=== PATIENT | female | born 1945 | race Caucasian/White ===

== ENCOUNTER → 2021-03-12 10:22 | Outpatient (CLI) | payer OTHER, SELFPAY ==
--- NOTE | ~2021-03-12 | DEXA_ITS ---
Bone Density Report Name: Danyelle Pool Age: 76 Sex: Female Ethnicity: White Date of : 1945 Indication: postmenopausal; screening for osteoporosis; height loss; hysterectomy; Referring Provider: SILVIA, DREA Caro Study: Bone densitometry was performed. Exam Date: March 12, 2021 Accession number: [id number] Bone Density: Region BMD T-score Z-score Classification AP Spine (L1-L4) 1.076 0.3 2.8 Normal Femoral Neck (Left) 0.784 -0.6 1.6 Normal Total Hip (Left) 0.895 -0.4 1.5 Normal Femoral Neck (Right) 0.806 -0.4 1.8 Normal Total Hip (Right) 0.861 -0.7 1.2 Normal Total Hip Mean 0.878 -0.6 1.4 Normal World Health Organization criteria for BMD impression classify patients as: Normal (T-score at or above -1.0), Osteopenia (T-score between -1.0 and -2.5), or Osteoporosis (T-score at or below -2.5). 10-year Fracture Risk: FRAX not reported because: All T-scores for Spine Total, Hip Total, Femoral Neck at or above -1.0 Previous Exams: Region Exam Age BMD T-score BMD Change BMD Change Date g/cm2 vs Baseline vs Previous AP Spine(L1-L4) 03/12/2021 76 1.076 0.3 0.038 -0.030 10/03/2015 70 1.106 0.5 0.069* 0.069* 12/04/2011 66 1.037 -0.1 Total Hip(Left) 03/12/2021 76 0.895 -0.4 0.000 -0.067 10/03/2015 70 0.962 0.2 0.067* 0.067* 12/04/2011 66 0.895 -0.4 Total Hip(Right) 03/12/2021 76 0.861 -0.7 -0.065 -0.044 10/03/2015 70 0.905 -0.3 -0.021 -0.021 12/04/2011 66 0.927 -0.1 *Denotes significance at 95% confidence level, LSC for AP Spine = 0.022 g/cm2, LSC for Total Hip = 0.027 g/cm2 Clinical Information Provided by Patient: Has used the following medications: Vitamin D Has the following medical conditions: Hysterectomy Patient maximum height was 68.5 Menopause Age: 34 No regular weight bearing exercise Drinks caffeinated beverages Onset of menses at age 12 Number of children 3 Impression: The patient has normal bone mass. No significant bone loss was observed. Discussion: BONE DENSITY IS ABOVE THE MINIMUM DESIRABLE LEVEL AT ALL SKELETAL SITES TESTED. This patient?s bone mineral density is above the minimum desirable level (T-score -1.0 or better) at all sites measured. The patient should follow a healthful lifestyle (good nutrition with adequate calcium and vitamin D, and appropriate weight-bearin
== END ==
PROVIDERS: PCP Internal Medicine; Visit Provider Internal Medicine
DX: Z78.0 Asymptomatic menopausal state (principal)
CPT/HCPCS: 77080

== ENCOUNTER 2023-02-04 12:52 | Outpatient (CLI) | payer OTHER, SELFPAY ==
--- NOTE | 2023-02-04 14:05 | ECG_ITS ---
Measurements Intervals [place] Rate: 56 P: 51 [place]: 220 QRS: -19 QRSD: 93 T: 29 QT: 354 QTc: 342 Interpretive Statements SINUS BRADYCARDIA WITH SINUS ARRHYTHMIA WITH FIRST DEGREE AV BLOCK POOR R WAVE PROGRESSION, ANTERIOR LEADS NONSPECIFIC T-WAVE ABNORMALITY- ANT/INF LEADS BASELINE ARTIFACT- I, III, AVR, AVL, V4-V6 BORDERLINE ECG NO PREVIOUS ECG AVAILABLE FOR COMPARISON Electronically Signed On 02-04-2023 14:41:44 CDT by Eduardo Davis D.O.
[2023-02-04 14:36] LABS: Basophils Absolute Auto 0.1 K/mm3 (0.0-0.1); Eosinophils Absolute Auto 0.3 K/mm3 (0-0.3); Eosinophils Percent Auto 4.1 % (0-4.4); Hematocrit 36.7 % (37.0-47.0); Hemoglobin 12.5 g/dL (12.0-15.0); Immature Granulocyte Absolute 0.03 K/mm3 (0.00-0.031); Immature Granulocyte Percent A 0.5 % (0-0.5); Lymphocytes Percent Auto 17.9 % (18.3-44.2); Mean Corpuscular HGB Conc 34.1 g/dl (32-36); Mean Corpuscular Hemoglobin 29.2 pg (26-34); Mean Corpuscular Volume 85.7 fl (80-100); Mean Platelet Volume 8.9 fl (7.4-10.4); Monocytes Absolute Auto 0.5 K/mm3 (0.1-0.6); Monocytes Percent Auto 7.3 % (2.6-8.5); Neutrophils Absolute Auto 4.3 K/mm3 (1.3-6.7); Neutrophils Percent Auto 69.2 % (45.5-73.1); Platelet Count Result 200 k/mm3 (150-375); Red Blood Count 4.28 M/mm3 (4.2-5.4); Red Cell Distribution Width 12.4 % (11.5-14.5); White Blood Count 6.2 K/mm3 (4.5-10.0)
[2023-02-04 14:54] LABS: INR 1.3
[2023-02-04 14:55] LABS: Partial Thromboplastin Time 31.2 SECONDS (22.3-36.8)
[2023-02-04 15:01] LABS: Alanine Aminotransferase 21 U/L (6-35); Albumin Level 4.4 g/dL (3.5-5.1); Alkaline Phosphatase 55 U/L (38-126); Anion Gap 7 mmol/L (8-16); Aspartate Amino Transferase 24 U/L (14-36); Bilirubin,Total 0.7 mg/dL (0.2-1.3); Blood Urea Nitrogen 19 mg/dL (7-17); Calcium 9.2 mg/dL (8.4-10.2); Carbon Dioxide 31 mmol/L (22-30); Chloride 99 mmol/L (98-107); Estimated Glomerular Filt Rate 40; Glucose 140 mg/dL (65-110); Potassium 3.6 mmol/L (3.4-5.0); Sodium 137 mmol/L (137-145)
== END 2023-02-04 12:53 | disposition home or self-care (01) ==
LOC: ANHSURGERY 12:59
PROVIDERS: PCP Internal Medicine; Visit Provider Urology
DX: N81.9 Female genital prolapse, unspecified (principal); I10 Essential (primary) hypertension; Z01.818 Encounter for other preprocedural examination
CPT/HCPCS: 36415; 80053; 85025; 85610; 85730; 86850; 86900; 86901; 86920; 93005

== ENCOUNTER 2023-02-16 00:30 | Day surgery (SDC) | payer OTHER, SELFPAY ==
[2023-02-04 13:34] VITALS: BP 135/66; PULSE 56; RESP 16; TEMP 36.8; O2SAT 100; BMI 27.6
--- NOTE | 2023-02-04 13:50 | PC.NURSE ---
Report to the Outpatient Waiting Room, entrance under the green pavilion located off [facility], at time __9:00AM on date __02/16/23 . Planned Procedure Time: __11:00AM . Time changes happen often and if your time is changed the preop area will call you the afternoon before. - You and your visitor will be asked to self-screen and do not enter if you have any COVID symptoms. - Only one visitor is requested with a max of two and NO children visitors are allowed at this time. - The patient visitor may be requested to leave or wait in car when not with patient due to distancing restrictions. - A mask is optional within the hospital at this time. Patients may have clear liquids (water, carbonated beverages, clear teas, apple juice) until 3 hours prior to surgery with a maximum of 20 ounces. - No food from midnight until time of surgery Take the following medications with a SIP of water the morning of surgery: ___ALPRAZOLAM NEEDED, MULTAQ, METOPROLOL DO NOT STOP ANY OF YOUR OTHER PRESCRIPTION MEDICATIONS PRIOR TO SURGERY ?EXCEPT THE FOLLOWING Medications to discontinue per physician ___HOLD XERALTO PER DR ESPINAL, HOLD ALL VITAMINS/SUPPLEMENTS 7 DAYS PRE-OP PER DR ESPINAL(PER PATIENT)- LAST DOSE 02/18/23 Please no make-up, nail chinese, hairspray, perfume, deodorant, or body powder the day of surgery. No jewelry (including any body piercings) or valuables the day of surgery, leave them at home. Please take a shower or bath the night before, or the morning of, surgery with an antibacterial soap. Wear comfortable, loose fitting clothing. Children are encouraged to wear pajamas. - Jewelry must be removed prior to entering the operating room. Rings and piercings that are not removed may be cut off. - The hospital will not accept responsibility for valuables. - Please leave all valuables, including medications, at home the day of surgery. If you are going home after surgery, a licensed otr flatbed driver must drive you home. - NO public transportation without another adult if you receive anesthesia. - We recommend that an adult stay with you for 24 hours following discharge. - We also recommend that you do not drive, make important decision, drink alcoholic beverages, or take any drugs that were not prescribed by your health care provider for at least 24 hours after your discharge time. Follow any additional instructions given to you from your surgeon. If you or anyone in your household have experienced Covid symptoms in the past week, please notify your surgeon or the nurse liaison at the phone number below for possible testing. Telephone instructions given to __PATIENT and asked if any additional questions and then verbalized understanding. Patient advised to call surgeon office or pre surgery nurse liaison [phone] if any additional questions.
--- NOTE | 2023-02-14 13:20 | PM.IMHP ---
H&P: HPI History of Present Illness Date/Time: 02/14/23 13:20 Chief Complaint: POP/YESENIA Narrative: 78 yo with post hysterectomy POP. Eoriosns with pessary. YESENIA resolved as prolpase worsened. Desires a surgical intervention Review of Systems Review of Systems: All systems reviewed & are unremarkable except as noted in HPI and below PMFSH Past Medical History Medical History Atrial fibrillation Chronic GERD CVA (cerebral vascular accident) mini stroke a long time ago Hyperlipidemia Hypertension MVP (mitral valve prolapse) Psoriasis Sarcoidosis of lung in remission Seasonal allergies Vaginal delivery x3 Surgical History Surgical History History of bilateral salpingo-oophorectomy 1978? History of breast surgery , clogged duct History of cholecystectomy History of hand surgery left trigger finger History of hysterectomy 1978? Family History Family History Mother Heart disease Social History Social History Smoking status: Never smoker Alcohol intake: never Substance use: never Living arrangements: with family Additional living arrangements comments: DAUGHTER & GRANDDAUGHTER Spiritual care concerns: No Agree to blood products: Yes Meds Home Medications and Allergies Home Medications Medication Instructions Recorded Confirmed Type alprazolam 0.25 mg tablet 0.125 mg PO TID PRN Anxiety 01/29/22 02/04/23 History atorvastatin 10 mg tablet 10 mg PO DAILY 01/29/22 02/04/23 History benazepril 20 1 tablet PO QAM 01/29/22 02/04/23 History mg-hydrochlorothiazide 12.5 mg tablet cholecalciferol (vitamin D3) 50 50 mcg PO DAILY 01/29/22 02/04/23 History mcg (2,000 unit) capsule coenzyme Q10 200 mg capsule 200 mg PO DAILY 01/29/22 02/04/23 History cranberry fruit concentrate 250 mg 250 mg PO BID 01/29/22 02/04/23 History chewable tablet (Azo Cranberry) dronedarone 400 mg tablet (Multaq) 400 mg PO Q12H 01/29/22 02/04/23 History fexofenadine 180 mg tablet 180 mg PO DAILY PRN Sinus Symptoms 01/29/22 02/04/23 History (Deisy Allergy) furosemide 20 mg tablet 20 mg PO QAM 01/29/22 02/04/23 History glucosamine sulf dipotassium Cl 1 cap PO DAILY 01/29/22 02/04/23 History 250 mg-chondroitin sulf 200 mg capsule magnesium 250 mg tablet 250 mg PO BID 01/29/22 02/04/23 History metoprolol succinate 100 mg 100 mg PO QAM 01/29/22 02/04/23 History tablet,extended release 24 hr metoprolol succinate 25 mg 12.5 mg PO QPM 01/29/22 02/04/23 History tablet,extended release 24 hr montelukast 10 mg tablet 10 mg PO HS 01/29/22 02/04/23 History omega-3 fatty acids-fish oil 360 1 cap PO BID 01/29/22 02/04/23 History mg-1,200 mg capsule (Fish Oil) potassium chloride 10 mEq 20 meq PO BID 01/29/22 02/04/23 History capsule,extended release risankizumab-rzaa 150 mg/mL 150 mg subcut Q3-4M 01/29/22 02/04/23 History subcutaneous pen injector (Skyrizi) rivaroxaban 10 mg tablet (Xarelto) 10 mg PO DAILY 01/29/22 02/04/23 History Bifidobacterium infantis 4 mg 4 mg PO DAILY 02/04/23 02/04/23 History capsule (Align) psyllium husk 0.4 gram capsule 0.4 g PO DAILY 02/04/23 02/04/23 History Allergies Allergy/AdvReac Type Severity Reaction Status Date / Time No Known Allergies Allergy Verified 02/04/23 13:14 Vital Signs Thin NAD normal breathing A+O x3 + urethral mobility anterior wall +4 [place] 0 Assessment and Plan Assessment and plan (1) Prolapse of vaginal vault after hysterectomy: Code(s): N99.3 - Prolapse of vaginal vault after hysterectomy Status: Acute (2) YESENIA (stress urinary incontinence, female): Code(s): N39.3 - Stress incontinence (female) (male) Status: Acute Plan robotic colpopexy and urethral sling.
[2023-02-16] VITALS (11 sets, daily range): BP systolic 113–150; BP diastolic 51–77; PULSE 57–80; RESP 13–19; TEMP 35.9–36.8; O2SAT 96–100
--- NOTE | 2023-02-16 07:13 | WPDHPUPDATE1 ---
History and Physical Update Update Date/Time: 02/16/23 07:13 History and Physical has been reviewed, including an updated exam of the patient. There are NO changes in the patient's condition. Risks, benefits, and alternatives have been discussed and questions answered. Patient agrees to proceed with procedure.
--- NOTE | 2023-02-16 07:48 | WPDANESEPPF ---
Anes - Initial Pre Proc Eval Procedure: Operation Date: 02/16/23 11:00 Proposed Procedures p Robotic Sacrocolpopexy - Miki Brooks MD s Urethral Sling - Miki Brooks MD Date/Time: 02/16/23 07:48 Surgeon: Miki Brooks MD Pre Op Diagnosis: prolapse of vaginal vault after hyst,cystocele Patient Data Age: 78 Gender: F Height: 1.69 m Weight: 79 kg Last Vital Signs Temp 36.8 C 02/04/23 13:34 Pulse 56 L 02/04/23 13:34 Resp 16 02/04/23 13:34 BP 135/66 02/04/23 13:34 Pulse Ox 100 02/04/23 13:34 O2 Del Method Room Air 02/04/23 13:34 Allergies Allergy/AdvReac Type Severity Reaction Status Date / Time No Known Allergies Allergy Verified 02/16/23 09:19 Home Medications Medication Instructions Recorded Confirmed Type alprazolam 0.25 mg tablet 0.125 mg PO TID PRN Anxiety 01/29/22 02/16/23 History atorvastatin 10 mg tablet 10 mg PO DAILY 01/29/22 02/16/23 History benazepril 20 1 tablet PO QAM 01/29/22 02/16/23 History mg-hydrochlorothiazide 12.5 mg tablet cholecalciferol (vitamin D3) 50 50 mcg PO DAILY 01/29/22 02/16/23 History mcg (2,000 unit) capsule coenzyme Q10 200 mg capsule 200 mg PO DAILY 01/29/22 02/16/23 History cranberry fruit concentrate 250 mg 250 mg PO BID 01/29/22 02/16/23 History chewable tablet (Azo Cranberry) dronedarone 400 mg tablet (Multaq) 400 mg PO Q12H 01/29/22 02/16/23 History fexofenadine 180 mg tablet 180 mg PO DAILY PRN Sinus Symptoms 01/29/22 02/16/23 History (Deisy Allergy) furosemide 20 mg tablet 20 mg PO QAM 01/29/22 02/16/23 History glucosamine sulf dipotassium Cl 1 cap PO DAILY 01/29/22 02/16/23 History 250 mg-chondroitin sulf 200 mg capsule magnesium 250 mg tablet 250 mg PO BID 01/29/22 02/16/23 History metoprolol succinate 100 mg 100 mg PO QAM 01/29/22 02/16/23 History tablet,extended release 24 hr metoprolol succinate 25 mg 12.5 mg PO QPM 01/29/22 02/16/23 History tablet,extended release 24 hr montelukast 10 mg tablet 10 mg PO HS 01/29/22 02/16/23 History omega-3 fatty acids-fish oil 360 1 cap PO BID 01/29/22 02/16/23 History mg-1,200 mg capsule (Fish Oil) potassium chloride 10 mEq 20 meq PO BID 01/29/22 02/16/23 History capsule,extended release risankizumab-rzaa 150 mg/mL 150 mg subcut Q3-4M 01/29/22 02/04/23 History subcutaneous pen injector (Skyrizi) rivaroxaban 10 mg tablet (Xarelto) 10 mg PO DAILY 01/29/22 02/16/23 History Bifidobacterium infantis 4 mg 4 mg PO DAILY 02/04/23 02/16/23 History capsule (Align) psyllium husk 0.4 gram capsule 0.4 g PO DAILY 02/04/23 02/16/23 History ECG: Date of Service: 02/04/23 Procedure(s): CA 12 lead EKG Accession Number(s): [id number] cc: ~ ? Measurements Intervals? [place]? Rate: ? 56 ? P:? 51 MD: ? 220? QRS:? -19 QRSD: ? 93 ? T:? 29 QT: ? 354? QTc:? 342? Interpretive Statements SINUS BRADYCARDIA WITH SINUS ARRHYTHMIA WITH FIRST DEGREE AV BLOCK POOR R WAVE PROGRESSION, ANTERIOR LEADS NONSPECIFIC T-WAVE ABNORMALITY- ANT/INF LEADS BASELINE ARTIFACT- I, III, AVR, AVL, V4-V6 BORDERLINE ECG NO PREVIOUS ECG AVAILABLE FOR COMPARISON Electronically Signed On 02-04-2023 14:41:44 CDT by Eduardo Davis D.O. Patient hx anesthesia problems: none Family hx anesthesia problems: none Results Review: All pre-operative results and documents have been reviewed as part of the pre-operative evaluation. [facility] Past Medical History Medical History Atrial fibrillation Chronic GERD CVA (cerebral vascular accident) mini stroke a long time ago Hyperlipidemia Hypertension MVP (mitral valve prolapse) Psoriasis Sarcoidosis of lung
[2023-02-16] MEDS: LACTATED RINGERS 1,000 ML 30 ML IV CONT ×2 (09:35→13:36)
[2023-02-16 09:51] LABS: Prothrombin Time 13.1 Seconds (11.1-14.7)
[2023-02-16 09:52] LABS: Partial Thromboplastin Time 25.1 SECONDS (22.3-36.8)
[2023-02-16] MEDS: ceFAZolin 2 GM/D5W 50 ML 2 GM/50 ML BAG IVPB (10:32)
[2023-02-16] MEDS: BUPIVACAINE/EPINEPHRINE 0.25% 50 ML VIAL 10 ML INFILTRATE (13:07)
[2023-02-16] MEDS: fentaNYL CITRATE INJ (*CRX) 100 MCG/2 ML VIAL 25 MCG IV PUSH ×4 (13:40→15:12)
--- NOTE | 2023-02-16 13:56 | W.PM.PROC2 ---
Procedure Note - Detailed Date of Procedure 02/16/23 Pre-op Diagnosis prolapse of vaginal vault after hyst,cystocele, stress incontinence Post-op Diagnosis Same Procedure Performed Robotic assisted laparoscopic sacral colpopexy Urethral sling Cystoscopy Surgeon Miki Brooks MD Anesthesia General Indications This is a woman with post hysterectomy vaginal vault prolapse as well as stress urinary incontinence. She desires surgical correction. She understands risks of bleeding, infection, diskitis, damage to surrounding organs, damage to the bowel or urinary tract, recurrence of prolapse, dyspareunia, vaginal mesh exposure, urinary tract mesh exposure, obstructive voiding requiring secondary procedure, hip and leg pain, and other perioperative intraoperative and postoperative complications. She is to proceed Findings See below Description of Procedure She was correctly identified. Informed consent obtained. She is brought to the operating room. She was given general anesthesia. She was placed in the lithotomy position. She was given appropriate perioperative antibiotics. She was prepped and draped in a sterile fashion. A time-out performed. I anesthetized the skin 3 fingerbreadths cephalad to the umbilicus. I incised the skin. I located the fascia. I grasped the fascia with Nathan clamps. I incised the fascia sharply and a Rodriguez type technique. I placed Vicryl sutures for later fascial closure. I placed a midline trocar. Under direct vision placed 2 additional trocars in the right upper quadrant and 2 additional trocars in the left upper quadrant. She was placed in steep Trendelenburg. The robot was docked. I sat at the console. adhesions were noted of small and large bowel into the pelvis. These were all taken down sharply without the use of cautery. This allowed for the bowel to get out of the pelvis and facilitate the surgery. Great care was taken to not injure the bowel. Of note she had significant redundant sigmoid colon. With the Sizer in the vagina and created a plane on the anterior and posterior vaginal wall for several cm taking great care not to injure the vagina, bladder, or rectum. I introduced the mesh into the vagina. I sewed the anterior leaflet of mesh on the anterior vaginal wall and posterior leaf of the mesh on the posterior vaginal wall with several sutures of 2 0 [place]-Venancio taking great care not to go through and through. I then opened up the peritoneum over the sacral promontory. I carried this incision into the cul-de-sac. I freed up the edges for later retroperitonealization of the mesh. I located the anterior longitudinal ligament of the sacrum. I cleaned off any fatty tissues. I then tensioned my mesh appropriately. I did a vaginal exam to ensure prolapse reduction without undue tension. I then sewed the proximal leaflet of mesh onto the ligament with several sutures of 2 0 [place]Venancio. I then used a 2 0 Monocryl to meticulously retroperitonealized all mesh. I allowed the colon to go back into its normal anatomic location. There is no sign of impingement. He had an was then exited. Fascial sutures were closed. In additional suture was required to quit completely close the fascia. The wounds were all irrigated and closed with 4 O Monocryl and skin glue. She was then repositioned and prepped for urethral sling. I marked out the inner thigh incisions. I anesthetized the skin and made those incisions. I then anesthetized the anterior vaginal wall over the mid urethra. I made a 1 cm incision. I dissected out laterally taking great care not to injure the urethra vaginal wall. I passed the helical trocars. I did this 1st on the left than on the right from the thigh incision towards the vaginal incision. Sling was connected to the trocars and brought out through the thigh incision. I tensioned the sling appropriately. I cut and removed the plastic sleeves. I then performed cystoscopy. The bladder
--- NOTE | 2023-02-16 15:35 | PC.NURSE ---
Patient transferred to post room #288 via ( stretcher ). Support person present. Oriented to unit, room, information board, rooming in, admission packet and security measures. Patient verbalizes understanding.
[2023-02-16] MEDS: KCL 20 MEQ/D5/0.45% SOD CHL 1,000 ML 100 ML IV CONT (15:52)
[2023-02-16] MEDS: KETOROLAC 15 MG/ML VIAL (*BKC) IV PUSH (17:03)
[2023-02-16] MEDS: ceFAZolin 1 GM/NS 50 ML 1 GM/50 ML BAG IVPB (17:04)
[2023-02-16] MEDS: MONTELUKAST SODIUM 10 MG TABLET PO (20:20)
[2023-02-17 01:00] VITALS: BP 128/58; PULSE 61; RESP 16; TEMP 36.8; O2SAT 97
[2023-02-17] MEDS: ceFAZolin 1 GM/NS 50 ML 1 GM/50 ML BAG IVPB ×2 (01:00→09:15)
[2023-02-17 05:20] VITALS: BP 130/60; PULSE 69; RESP 16; TEMP 36.6; O2SAT 98
[2023-02-17] MEDS: ALPRAZolam (*CRX) 0.125 MG TABLET PO (06:24)
[2023-02-17 08:00] VITALS: BP 120/54; PULSE 59; RESP 16; TEMP 36.8; O2SAT 97
[2023-02-17] MEDS: DOCUSATE SODIUM 100 MG CAPSULE PO (09:13)
[2023-02-17 09:14] VITALS: PULSE 59
[2023-02-17] MEDS: hydroCHLOROthiazide 12.5 MG CAPSULE PO (09:14)
[2023-02-17] MEDS: FUROSEMIDE 20 MG TABLET PO (09:14)
[2023-02-17] MEDS: lisinopriL 20 MG TABLET PO (09:14)
[2023-02-17] MEDS: METOPROLOL SUCCINATE EXT REL 100 MG TABCR PO (09:14)
[2023-02-17] MEDS: ENOXAPARIN 30 MG/0.3 ML SYRINGE SUB-Q (09:14)
--- NOTE | 2023-02-17 09:42 | WPDANESPN ---
Anes - Prog Note Post-Op Date/Time: 02/17/23 09:42 Cardiovascular status: normal Respiratory status: normal Airway patency: baseline Mental status: baseline Post-Op hydration status: normal Vital Signs: Last Vital Signs Temp 98.2 F 02/17/23 08:00 Pulse 59 L 02/17/23 09:14 Resp 16 02/17/23 08:00 BP 120/54 L 02/17/23 08:00 Pulse Ox 97 02/17/23 08:00 O2 Del Method Room Air 02/17/23 07:15 O2 Flow Rate 8 02/16/23 14:05 Pain Score (VAS): 0 I/O: Intake & Output 02/16/23 02/17/23 02/17/23 23:59 07:59 15:59 Intake Total 750 1500 Output Total 800 500 Balance -50 1000 02/16/23 09:28 PT 13.1 INR 1.0 APTT 25.1 Post-procedural complaints: none Patient Feedback: Patient satisfied with anesthetic care.pt c/o feeling unsteady when up. reinforced to pt need to get up with assistance until she feels steady with independent ambulation
--- NOTE | 2023-02-17 12:55 | WPDUROPN2 ---
Progress Note: A&P Assessment and Plan (1) Prolapse of vaginal vault after hysterectomy: Code(s): N99.3 - Prolapse of vaginal vault after hysterectomy Status: Acute Assessment and Plan: Ok to discharge home. (2) YESENIA (stress urinary incontinence, female): Code(s): N39.3 - Stress incontinence (female) (male) Status: Acute Subjective Subjective Date/Time Seen: 02/17/23 12:55 Robotic assisted laparoscopic sacral colpopexy Urethral sling Cystoscopy The patient is doing very well today. She is urinating on her own without her cheek. Post Op day: 1 Review of Systems Respiratory: Respiratory: Reports no additional respiratory complaints Gastrointestinal: Gastrointestinal: Denies abdominal pain Genitourinary: Genitourinary: Denies dysuria, Denies pelvic pain, Denies flank pain, Denies urinary incontinence and Denies urinary urgency Exam Const: General: comfortable Resp: Effort & Inspection: normal respiratory effort Cardio: Rate: regular rate GI: Inspection: incision (all well approximated, no tenderness, redness or edema) GI Palp: Yes Soft to palpation and No Tenderness to palpation present (GI) : General: Yes no CVA tenderness Back/Spine/Pelvis: Back: no CVA tenderness Objective Data Vital Signs Vital Signs: Vital Signs - 24 hr 02/16/23 13:36 02/16/23 13:50 02/16/23 14:05 Temperature 97.3 F L 97.4 F L 97.5 F L Pulse Rate 57 L 57 L 58 L Respiratory Rate 14 17 14 Blood Pressure 136/51 L 113/60 124/77 Pulse Oximetry 100 100 100 Oxygen Delivery Simple Face Mask Simple Face Mask Simple Face Mask Oxygen Flow Rate 8 8 8 02/16/23 14:20 02/16/23 14:35 02/16/23 14:50 Temperature 97.3 F L 97.0 F L 97.3 F L Pulse Rate 57 L 58 L 65 Respiratory Rate 15 13 19 Blood Pressure 144/60 H 141/56 H 132/60 Pulse Oximetry 98 98 98 Oxygen Delivery Room Air Room Air Room Air Oxygen Flow Rate 02/16/23 15:05 02/16/23 15:20 02/16/23 16:02 Temperature 98.0 F 96.7 F L Pulse Rate 58 L 59 L 80 Respiratory Rate 18 14 16 Blood Pressure 139/53 L 136/73 Pulse Oximetry 97 96 97 Oxygen Delivery Room Air Room Air Oxygen Flow Rate 02/16/23 16:02 02/16/23 20:20 02/16/23 20:20 Temperature 97.8 F Pulse Rate 65 Respiratory Rate 18 Blood Pressure 132/56 L Pulse Oximetry 98 Oxygen Delivery Room Air Room Air Oxygen Flow Rate 02/17/23 01:00 02/17/23 01:00 02/17/23 05:20 Temperature 98.2 F 98 F Pulse Rate 61 69 Respiratory Rate 16 16 Blood Pressure 128/58 L 130/60 Pulse Oximetry 97 98 Oxygen Delivery Room Air Oxygen Flow Rate 02/17/23 05:20 02/17/23 07:15 02/17/23 08:00 Temperature 98.2 F Pulse Rate 59 L Respiratory Rate 16 Blood Pressure 120/54 L Pulse Oximetry 97 Oxygen Delivery Room Air Room Air Oxygen Flow Rate 02/17/23 09:14 Temperature Pulse Rate 59 L Respiratory Rate Blood Pressure Pulse Oximetry Oxygen Delivery Oxygen Flow Rate Intake/Output Intake/Output: Intake & Output 02/14/23 02/15/23 02/16/23 02/17/23 23:59 23:59 23:59 23:59 Intake Total 1200 1550 Output Total 920 1050 Balance 280 500
== END 2023-02-17 11:59 | disposition home or self-care (01) ==
LOC: ANHSURGERY 14:47 → ANHOB2 15:29
PROVIDERS: Anesthesiology; PCP Internal Medicine; Visit Provider Urology
PROC: (CPT 57425; principal; 2023-02-16 11:00)
PROC: (CPT 57425; 2023-02-16 11:00)
DX: N99.3 Prolapse of vaginal vault after hysterectomy (principal); N39.3 Stress incontinence (female) (male); I48.91 Unspecified atrial fibrillation; I10 Essential (primary) hypertension; E78.5 Hyperlipidemia, unspecified; I34.1 Nonrheumatic mitral (valve) prolapse; K21.9 Gastro-esophageal reflux disease without esophagitis; L40.9 Psoriasis, unspecified; Z86.73 Personal history of transient ischemic attack (TIA), and cerebral infarction without residual deficits; Z79.01 Long term (current) use of anticoagulants
CPT/HCPCS: 57425; 57288; S2900; 36415; 80053; 85025; 85610; 85730; 86850; 86900; 86901; 86920; 93005; 99199; A9270; C1771; C1781; C9290; J0690; J1100; J1650; J1885; J2250; J2405; J2704; J3010; J3480; J7030; J7120

== ENCOUNTER 2023-05-28 04:05 | Emergency (ER) | payer OTHER, SELFPAY ==
[2023-05-28 04:08] VITALS: BP 172/69; PULSE 64; RESP 20; TEMP 36.7; O2SAT 99
--- NOTE | 2023-05-28 04:12 | ECG_ITS ---
Measurements Intervals [place] Rate: 58 P: 53 [place]: 212 QRS: -29 QRSD: 111 T: 45 QT: 451 QTc: 443 Interpretive Statements SINUS BRADYCARDIA WITH FIRST DEGREE AV BLOCK INTRAVENTRICULAR CONDUCTION DELAY DELAYED PRECORDIAL R/S TRANSITION BASELINE WANDER- I, II, III, AVR, AVF, V3, V6 BORDERLINE ECG COMPARED TO ECG 02/04/2023 13:19:57 INTRAVENTRICULAR CONDUCTION DELAY NOW PRESENT Electronically Signed On 05-28-2023 6:49:35 CDT by Eduardo Davis D.O.
[2023-05-28 04:13] VITALS: PULSE 60
[2023-05-28 04:14] VITALS: BP 170/82; PULSE 63; RESP 12; TEMP 36.6; O2SAT 99
[2023-05-28 04:26] LABS: Basophils Absolute Auto 0.1 K/mm3 (0.0-0.1); Basophils Percent Auto 0.8 % (0.2-1.2); Eosinophils Absolute Auto 0.4 K/mm3 (0-0.3); Eosinophils Percent Auto 6.7 % (0-4.4); Hematocrit 38.9 % (37.0-47.0); Hemoglobin 13.4 g/dL (12.0-15.0); Immature Granulocyte Absolute 0.01 K/mm3 (0.00-0.031); Immature Granulocyte Percent A 0.2 % (0-0.5); Lymphocytes Absolute Auto 2.59 K/mm3 (0.9-3.2); Lymphocytes Percent Auto 42.5 % (18.3-44.2); Mean Corpuscular HGB Conc 34.4 g/dl (32-36); Mean Corpuscular Hemoglobin 29.5 pg (26-34); Mean Corpuscular Volume 85.7 fl (80-100); Mean Platelet Volume 8.8 fl (7.4-10.4); Monocytes Absolute Auto 0.5 K/mm3 (0.1-0.6); Monocytes Percent Auto 8.2 % (2.6-8.5); Neutrophils Absolute Auto 2.5 K/mm3 (1.3-6.7); Neutrophils Percent Auto 41.6 % (45.5-73.1); Platelet Count Result 209 k/mm3 (150-375); Red Blood Count 4.54 M/mm3 (4.2-5.4); Red Cell Distribution Width 12.4 % (11.5-14.5); White Blood Count 6.1 K/mm3 (4.5-10.0)
--- NOTE | 2023-05-28 04:27 | ED.GENADULT ---
HPI - General Adult General Chief complaint: Arrhythmia/Palpitations Stated complaint: palpations History of Present Illness HPI narrative: This is a 78-year-old female history of paroxysmal AFib and anxiety. patient states that around 930pm she started to have some palpitations. This is how she feels when she goes into AFib. She took 1 of her Xanax and then was able to sleep until 330am. When she awoke she noticed that she was having palpitations again and took another 1/2 of her Xanax dose. She then started checking her heart rate on her phones other was as high as 103. She became anxious and came to the emergency department for evaluation. She did she have chest pain difficulty breathing nausea vomiting diaphoresis or association with exertion. At this time she actually states that she is asymptomatic and that both her palpitations and her anxiety have improved. Related Data Home Medications Medication Instructions Recorded Confirmed alprazolam 0.25 mg tablet 0.125 mg PO TID PRN Anxiety 01/29/22 02/16/23 atorvastatin 10 mg tablet 10 mg PO DAILY 01/29/22 02/16/23 benazepril 20 1 tablet PO QAM 01/29/22 02/16/23 mg-hydrochlorothiazide 12.5 mg tablet cholecalciferol (vitamin D3) 50 50 mcg PO DAILY 01/29/22 02/16/23 mcg (2,000 unit) capsule coenzyme Q10 200 mg capsule 200 mg PO DAILY 01/29/22 02/16/23 cranberry fruit concentrate 250 mg 250 mg PO BID 01/29/22 02/16/23 chewable tablet (Azo Cranberry) dronedarone 400 mg tablet (Multaq) 400 mg PO Q12H 01/29/22 02/16/23 fexofenadine 180 mg tablet 180 mg PO DAILY PRN Sinus Symptoms 01/29/22 02/16/23 (Deisy Allergy) furosemide 20 mg tablet 20 mg PO QAM 01/29/22 02/16/23 glucosamine sulf dipotassium Cl 1 cap PO DAILY 01/29/22 02/16/23 250 mg-chondroitin sulf 200 mg capsule magnesium 250 mg tablet 250 mg PO BID 01/29/22 02/16/23 metoprolol succinate 100 mg 100 mg PO QAM 01/29/22 02/16/23 tablet,extended release 24 hr metoprolol succinate 25 mg 12.5 mg PO QPM 01/29/22 02/16/23 tablet,extended release 24 hr montelukast 10 mg tablet 10 mg PO HS 01/29/22 02/16/23 omega-3 fatty acids-fish oil 360 1 cap PO BID 01/29/22 02/16/23 mg-1,200 mg capsule (Fish Oil) potassium chloride 10 mEq 20 meq PO BID 01/29/22 02/16/23 capsule,extended release risankizumab-rzaa 150 mg/mL 150 mg subcut Q3-4M 01/29/22 02/04/23 subcutaneous pen injector (Skyrizi) rivaroxaban 10 mg tablet (Xarelto) 10 mg PO DAILY 01/29/22 02/16/23 Bifidobacterium infantis 4 mg 4 mg PO DAILY 02/04/23 02/16/23 capsule (Align) psyllium husk 0.4 gram capsule 0.4 g PO DAILY 02/04/23 02/16/23 Allergies Allergy/AdvReac Type Severity Reaction Status Date / Time No Known Allergies Allergy Verified 02/16/23 09:19 [facility] Past Medical History Medical History Anxiety Atrial fibrillation Chronic GERD CVA (cerebral vascular accident) mini stroke a long time ago Hyperlipidemia Hypertension MVP (mitral valve prolapse) Psoriasis Sarcoidosis of lung in remission Seasonal allergies Vaginal delivery x3 Surgical History Surgical History History of bilateral salpingo-oophorectomy 1978? History of breast surgery , clogged duct History of cholecystectomy History of hand surgery left trigger finger History of hysterectomy 1978? Family History Family History Mother Heart disease Social History Social History Smoking status: Never smoker Alcohol intake: never Substance use: never Living arrangements: with family Additional living arrangements comments: DAUGHTER & GRANDDAUGHTER Spiritual care concerns: No Agree to blood products: Yes Exam Narrative: APPEARANCE: No apparent distress. Patient is pleasant and polite, well-appearing Head:
[2023-05-28 04:28] VITALS: BP 171/68; PULSE 52; RESP 15; O2SAT 97
[2023-05-28 05:13] VITALS: BP 149/65; PULSE 51; RESP 13; TEMP 36.7; O2SAT 96
== END 2023-05-28 05:14 | disposition home or self-care (01) ==
PROVIDERS: Emergency Provider Emergency Medicine; PCP Internal Medicine
DX: F41.9 Anxiety disorder, unspecified (principal); R00.2 Palpitations; I48.0 Paroxysmal atrial fibrillation; E78.5 Hyperlipidemia, unspecified; I10 Essential (primary) hypertension; Z79.01 Long term (current) use of anticoagulants; Z86.73 Personal history of transient ischemic attack (TIA), and cerebral infarction without residual deficits
CPT/HCPCS: 36415; 85025; 93005; 99284

== ENCOUNTER 2025-10-12 13:19 | Outpatient (CLI) | payer OTHER, SELFPAY ==
--- NOTE | ~2025-10-12 | US_ITS ---
EXAMINATION: US renal BI, 10/12/2025 13:25 [facility] HISTORY: I12.9 - Hypertensive chronic kidney disease with stage 1 ... Comparison: None Technique: Garcia-scale and color Doppler images were obtained. Findings: KIDNEYS: The renal cortices are slightly distended echogenic, no solid masses, cysts or calculi, no hydronephrosis. Right Kidney: Right kidney is 10 x 3.7 x 4.8 cm. Left Kidney: Left kidney 11.3 x 4.3 x 5.2 cm. Bladder: The bladder is unremarkable. . Impression: Mild medical renal disease. No obstruction Reviewed, dictated and finalized at location [facility] Impression: Mild medical renal disease. No obstruction
== END 2025-10-12 13:20 | disposition home or self-care (01) ==
LOC: MICIMG 13:20
PROVIDERS: PCP Internal Medicine; Visit Provider Internal Medicine Nephrology
DX: I12.9 Hypertensive chronic kidney disease with stage 1 through stage 4 chronic kidney disease, or unspecified chronic kidney disease (principal); N18.32 Chronic kidney disease, stage 3b
CPT/HCPCS: 76770